=== PATIENT | female | born 1935 | race African-American/Black ===

== ENCOUNTER 2019-06-03 17:30 | Inpatient (IN) | payer MEDICARE, MEDICAID ==
[~2019-06-03] VITALS: Ht 154.9 cm; Wt 100.7 kg
[~2019-06-03 17:30] MED LIST: ACET-2708 PO; ATOR20TA65 PO; BRIM5DRO EACHEYE; CLON0.1T PO; DOCU250C76 PO; FURO-151 PO; HYDR-4135 PO; KDUR20 PO; LEVO75TA7 PO; LOSA100T32 PO; SUCR1TAB30 PO
[2019-06-03 18:36] LABS: CLARITY URINE CLEAR (CLEAR); COLOR URINE YELLOW (YELLOW); KETONES URINE NEGATIVE (NEGATIVE); LEUKOCYTE ESTERASE URINE TRACE (NEGATIVE); NITRITE URINE NEGATIVE (NEGATIVE); OCCULT BLOOD URINE 3+ (NEGATIVE); PROTEIN URINE NEGATIVE (NEGATIVE); SPECIFIC GRAVITY URINE 1.005 (1.005-1.030); UROBILINOGEN URINE 0.2 E.U./dL (0.2-1.0)
[2019-06-03 18:38] LABS: BASOPHILS % 1.1 % (0.0-2.0); EOSINOPHILS % 1.2 % (0.0-5.0); HEMATOCRIT. 42.5 % (36.0-48.0); HEMOGLOBIN. 14.2 g/dL (12.0-16.0); LYMPHOCYTES % 28.3 % (20.0-50.0); MEAN CORPUSCULAR HEMOGLOBIN 31.7 pg (28.0-32.0); MEAN CORPUSCULAR VOLUME 94.8 fL (81.0-99.0); MEAN PLATELET VOLUME 10.3 fl (7.4-10.4); MONOCYTES % 6.6 % (2.0-8.0); NEUTROPHILS % 62.8 % (40.0-76.0); PLATELET 222 x1000/uL (130-400); RED BLOOD CELL COUNT 4.48 mill/uL (4.2-5.4); RED CELL DISTRIBUTION WIDTH 15.1 % (11.6-14.6)
[2019-06-03 18:42] LABS: CHLORIDE 106 mEq/L (98-107)
[2019-06-03 18:43] LABS: PROTHROMBIN TIME 10.3 sec (9.6-11.0)
[2019-06-03] MEDS ORDERED: POTASSIUM CHLORIDE 20MEQ TABLET SR PO ONE ×2 (19:00→19:15)
[2019-06-03] MEDS ORDERED: HYDROCODONE/ACETAMINOPHEN 5/325MG TABLET PO PRN (23:15)
[2019-06-03] MEDS ORDERED: CLONIDINE 0.1MG TABLET PO PRN (23:15)
[2019-06-03] MEDS ORDERED: ONDANSETRON HCL 4MG/2ML INJ IV PRN (23:15)
[2019-06-03] MEDS ORDERED: IPRATROPIUM/ALBUTEROL 0.5-3(2.5)MG/3ML NEB HHN PRN (23:15)
[2019-06-03] MEDS ORDERED: ACETAMINOPHEN 325MG TABLET PO PRN (23:15)
[2019-06-03] MEDS ORDERED: CIPR500S3 PO (23:18)
[2019-06-03] MEDS ORDERED: CARB10DR EACHEYE (23:18)
[2019-06-03] MEDS ORDERED: DORZ10DR17 OP (23:18)
[2019-06-03] MEDS ORDERED: PANT40TA4 MT (23:18)
[2019-06-03] MEDS ORDERED: XALAO EACHEYE (23:18)
[2019-06-03] MEDS ORDERED: PRED5DRO24 OP (23:18)
[2019-06-03] MEDS ORDERED: NETA2.5D EACHEYE (23:18)
[2019-06-03] MEDS ORDERED: ASPI-1158 MT (23:18)
[2019-06-04] VITALS (8 sets, daily range): BP systolic 105–142; BP diastolic 45–66
[2019-06-04 07:55] LABS: CHLORIDE 112 mEq/L (98-107)
[2019-06-04 08:01] LABS: BASOPHILS % 0.5 % (0.0-2.0); EOSINOPHILS % 2.5 % (0.0-5.0); HEMATOCRIT. 36.9 % (36.0-48.0); HEMOGLOBIN. 12.3 g/dL (12.0-16.0); LYMPHOCYTES % 25.8 % (20.0-50.0); MEAN CORPUSCULAR HEMOGLOBIN 31.6 pg (28.0-32.0); MEAN PLATELET VOLUME 11.2 fl (7.4-10.4); MONOCYTES % 8.3 % (2.0-8.0); NEUTROPHILS % 62.9 % (40.0-76.0); PLATELET 193 x1000/uL (130-400); RED BLOOD CELL COUNT 3.89 mill/uL (4.2-5.4); RED CELL DISTRIBUTION WIDTH 14.8 % (11.6-14.6)
[2019-06-04 08:06] LABS: LDL CHOLESTEROL 42 mg/dL (5-100)
[2019-06-04 08:07] LABS: HDL CHOLESTEROL 69 mg/dL (40-59); T4 FREE 1.07 ng/dL (0.76-1.46)
[2019-06-04] MEDS ORDERED: DEXTROSE 50% WATER 50ML SYRINGE IV PRN (11:00)
[2019-06-04] MEDS: BLOOD SUGAR DIAGNOSTIC STRIP TEST SCH ×3 (12:30→21:00)
[2019-06-04] MEDS: INSULIN LISPRO 100 UNITS/ML SUBCUT SCH ×3 (12:30→21:00)
[2019-06-05] VITALS: BP 120/64
[2019-06-05 04:00] VITALS: BP 124/59
[2019-06-05] MEDS: BLOOD SUGAR DIAGNOSTIC STRIP TEST SCH ×2 (07:20→12:20)
[2019-06-05] MEDS: INSULIN LISPRO 100 UNITS/ML SUBCUT SCH ×2 (07:35→12:20)
[2019-06-05 08:00] VITALS: BP 139/61
[2019-06-05 12:00] VITALS: BP 127/53
[2019-06-05 15:12] VITALS: BP 142/68
== END 2019-06-05 15:37 | disposition home or self-care (01) | DRG 698 ==
LOC: ER 18:03 → 6EST 22:26 → ENRESERV 06-04 00:52
PROVIDERS: ADMIT Internal Medicine; ATTEND Internal Medicine
DX: N32.9 Bladder disorder, unspecified (principal); I82.221 Chronic embolism and thrombosis of inferior vena cava; N39.0 Urinary tract infection, site not specified; J44.1 Chronic obstructive pulmonary disease with (acute) exacerbation; R31.9 Hematuria, unspecified; E78.5 Hyperlipidemia, unspecified; I10 Essential (primary) hypertension; E86.0 Dehydration; I25.10 Atherosclerotic heart disease of native coronary artery without angina pectoris; J43.9 Emphysema, unspecified; K80.20 Calculus of gallbladder without cholecystitis without obstruction; K76.89 Other specified diseases of liver; E03.9 Hypothyroidism, unspecified; Z96.659 Presence of unspecified artificial knee joint; E87.6 Hypokalemia; Z86.711 Personal history of pulmonary embolism; Z87.891 Personal history of nicotine dependence; Z90.710 Acquired absence of both cervix and uterus; Z79.899 Other long term (current) drug therapy; Z95.828 Presence of other vascular implants and grafts; Z95.5 Presence of coronary angioplasty implant and graft
CPT/HCPCS: 36415; 74176; 80061; 81003; 82962; 84439; 84443; 99285